=== PATIENT | male | born 1960 | race Two or more races ===

== ENCOUNTER → 2024-11-25 | Outpatient (CLI) | payer BC, SELFPAY ==
--- NOTE | 2024-11-25 09:01 | EKG_ITS ---
[facility] Test Date: 2024-11-25 Pat Name: ESMER VEGA Department: Room: - Gender: Male Train Operator: CRUZ : 1960 Requested By: Cesar David Order Number: [id number] Reading MD: Cesar David Measurements Intervals [place] Rate: 49 P: 31 [place]: 162 QRS: 30 QRSD: 82 T: 27 QT: 444 QTc: 403 Interpretive Statements SINUS BRADYCARDIA POSSIBLE RIGHT VENTRICULAR CONDUCTION DELAY [RSR (QR) IN V1/V2] NONSPECIFIC T-WAVE ABNORMALITY No previous ECG available for comparison /[id number]/[email or web address]/[id number].pdf
== END | disposition home or self-care (01) ==
LOC: SEKG 08:23
PROVIDERS: PCP Family Medicine; Referring Provider Family Medicine; Visit Provider Family Medicine
DX: I10 Essential (primary) hypertension (principal); M79.602 Pain in left arm
CPT/HCPCS: 93005